=== PATIENT | male | born 1985 | race Caucasian/White ===

== ENCOUNTER 2018-02-12 01:22 | Emergency (ER) | payer OTHER, MEDICAID, SELFPAY ==
[2018-02-12 01:30] VITALS: BP 153/97; PULSE 97; RESP 16; TEMP 36.5; O2SAT 99; BMI 21.9
--- NOTE | 2018-02-12 01:39 | ED.PSYCH ---
HPI - Psych General Chief Complaint: Psychiatric Symptoms Stated Complaint: WANTS MENTAL HEALTH POSS DETOX Time Seen by Provider: 02/12/18 01:36 Source: patient and RN notes reviewed Mode of arrival: ambulatory Limitations: no limitations History of Present Illness HPI Narrative: Patient is a 32-year-old male who presents wanting detox. He admits to using multiple drugs including methamphetamine Suboxone and opiates. He does is last use was about 5 days ago. He says he has been having hallucinations and people following him for at least the last 2 years. However over the last couple of days feels like he may hurt 1 of them and he feels like he may rash had a plain clothes police officer unintentionally, because finger little out of control now. He has no intent on hurting anyone or for himself but he does feel like he needs detox. He has been in detox before History of same: Yes Relieving factors: none Exacerbating factors: none Review of Systems Review of Systems All systems reviewed & are unremarkable except as noted in HPI and below Constitutional Reports system reviewed and no additional complaints, except as docu and Denies headache(s) ENT Ears, Nose, Mouth, and Throat: Denies headache(s) Cardiovascular Denies dyspnea and Denies dyspnea on exertion Respiratory Denies cough, Denies dyspnea, Denies dyspnea on exertion and Denies wheezing Gastrointestinal Gastrointestinal: Denies abdominal pain, Denies change in bowel habits, Denies diarrhea, Denies nausea and Denies vomiting Musculoskeletal Denies back pain, Denies muscle weakness, Denies numbness and Denies tingling Neurologic Denies headache(s), Denies lack of coordination, Denies numbness and Denies tingling Psychiatric Reports as per HPI Allergic/Immunologic Denies wheezing [facility] Medical History Anxiety (Acute) Exam Const General: anxious and No intoxicated appearing Nutritional Appearance: average body habitus Eyes Pupils: PERRL EOM: EOM intact bilaterally Resp Effort & Inspection: normal respiratory effort, able to speak in complete sentences and uses accessory muscles Auscultation: no rales, no rhonchi and no wheezes Cardio Pulses: normal peripheral pulses GI Inspection: non-distended Palpation: soft, no hepatosplenomegaly, No guarding, No pulsatile mass and No tender Auscultation: normal bowel sounds Neuro General: alert, oriented x3, gait normal and no focal motor deficits Cranial Nerves: CN's II-XI intact bilaterally Sensory Exam: no sensory deficits noted Psych Appearance: grossly normal Speech and Movement: agitated and pressured speech Mood: anxious mood Affect: normal affect Attitude: cooperative Thought Content: hallucinations visual MDM - Psych Lab Data Attestation: I reviewed the patient's lab results. Result diagrams: 02/12/18 02:15 02/12/18 02:15 Lab Results 02/12/18 02/12/18 02/12/18 Range/Units 01:40 01:40 02:15 WBC 14.0 H (4.5-11.0) X10^3/uL RBC 4.30 L (4.5-5.9) X10^6/uL Hgb 13.5 (13.5-17.5) g/dL Hct 39.2 L (41-53) % MCV 91.1 (80-100) fL MCH 31.3 (26-34) PG MCHC 34.4 (30-36) % RDW 12.8 (11.6-14.8) % Plt Count 470 H (150-400) X10^3/uL Neut % (Auto) 64.6 (50-75) % Lymph % (Auto) 26.0 (25-40) % [place] % (Auto) 6.4 (3-14) % Eos % (Auto) 2.2 (2-4) % Baso % (Auto) 0.8 (0-2) % Neut # (Auto) 9000 H (7648-0896) /uL Sodium (137-145) mmol/L Potassium (3.4-5.1) mmol/L Chloride (98-107) mmol/L Carbon Dioxide (22-32) mmol/L BUN (9-20) mg/dL Creatinine (0.66-1.25) mg/dL Estimated GFR (>60) mL/min BUN/Creatinine Ratio (6-22) Glucose (70-100) mg/dL Calcium (8.4-10.2) mg/dL Total Bilirubin (0.2-1.3) mg/dL AST (17-59) IU/L ALT (21-72) IU/L Alkaline Phosphatase (38-126) U/L Total Protein (6.3-8.2) g/dL Albumin (3.5-5.0) g/dL Globulin (1.7-4.1) g/dL Albumin/Globulin Ratio (1.0-2.8) Urine Color Yellow Urine Appearance Clear Urine pH 5.0 (4.5-8.0) Ur Specific [place] >=1.030 H (1.000-1.035) Urine Protein Trace (NEGATIVE) Urine Glucose (UA) Normal (NEGATIVE) g/dL Urine Ketones Negative (NEGATIVE) Urine Occult Blood Negative (NEGATIVE) Urine Nitrate Negative (NEGATIVE) Urine Bilirubin Negative (NEGATIVE) Urine Urobilinogen 0.2 (0.2) E.U./dL Ur Leukocyte Esterase Negative (NEGATIVE) Urine WBC 0-1/hpf (0-5/HPF) Hyaline Casts Occasional H (None) Urine Mucus 1+ H (Negative) Ur Culture Indicated? Cult not indicated Micro UA Comment Not Reportable Urine Opiates Screen Negative (Negative) Ur Oxycodone Screen Positive H (Negative) Urine Methadone Screen Negative (Negative) Ur Barbiturates Screen Negative (Negative) U Tricyclic Antidepress Positive H (Negative) Ur Phencyclidine Scrn Negative (Negative) Ur Amphetamines Screen Positive H (Negative) U Methamphetamines Scrn Positive H (Negative) Ur MDMA Scrn (Ecstasy) Negative (Negative) U Benzodiazepines Scrn Positive H (Negative) Urine Cocaine Screen Negative (Negative) U Marijuana (THC) Screen Positive H (Negative) Ethyl Alcohol mg/dL HIV 1&2 Antibody (NEGATIVE) 02/12/18 02/12/18 Range/Units 02:15 02:15 WBC (4.5-11.0) X10^3/uL RBC (4.5-5.9) X10^6/uL Hgb (13.5-17.5) g/dL Hct (41-53) % MCV (80-100) fL MCH (26-34) PG MCHC (30-36) % RDW (11.6-14.8) % Plt Count (150-400) X10^3/uL Neut % (Auto) (50-75) % Lymph % (Auto) (25-40) % [place] % (Auto) (3-14) % Eos % (Auto) (2-4) % Baso % (Auto) (0-2) % Neut # (Auto) (9438-9483) /uL Sodium 137 (137-145) mmol/L Potassium 3.4 (3.4-5.1) mmol/L Chloride 93.0 L (98-107) mmol/L Carbon Dioxide 30.0 (22-32) mmol/L BUN 16.0 (9-20) mg/dL Creatinine 0.80 (0.66-1.25) mg/dL Estimated GFR > 60.0 (>60) mL/min BUN/Creatinine Ratio 20.0 (6-22) Glucose 161 H (70-100) mg/dL Calcium 9.3 (8.4-10.2) mg/dL Total Bilirubin 0.4 (0.2-1.3) mg/dL AST 18 (17-59) IU/L ALT 21 (21-72) IU/L Alkaline Phosphatase 110 (38-126) U/L Total Protein 7.6 (6.3-8.2) g/dL Albumin 4.4 (3.5-5.0) g/dL Globulin 3.2 (1.7-4.1) g/dL Albumin/Globulin Ratio 1.4 (1.0-2.8) Urine Color Urine Appearance Urine pH (4.5-8.0) Ur Specific [place] (1.000-1.035) Urine Protein (NEGATIVE) Urine Glucose (UA) (NEGATIVE) g/dL Urine Ketones (NEGATIVE) Urine Occult Blood (NEGATIVE) Urine Nitrate (NEGATIVE) Urine Bilirubin (NEGATIVE) Urine Urobilinogen (0.2) E.U./dL Ur Leukocyte Esterase (NEGATIVE) Urine WBC (0-5/HPF) Hyaline Casts (None) Urine Mucus (Negative) Ur Culture Indicated? Micro UA Comment Urine Opiates Screen (Negative) Ur Oxycodone Screen (Negative) Urine Methadone Screen (Negative) Ur Barbiturates Screen (Negative) U Tricyclic Antidepress (Negative) Ur Phencyclidine Scrn (Negative) Ur Amphetamines Screen (Negative) U Methamphetamines Scrn (Negative) Ur MDMA Scrn (Ecstasy) (Negative) U Benzodiazepines Scrn (Negative) Urine Cocaine Screen (Negative) U Marijuana (THC) Screen (Negative) Ethyl Alcohol < 10 mg/dL HIV 1&2 Antibody Negative (NEGATIVE) Course Orders Ordered: Discontinued Medications Al Hydrox/Mg Hydrox/Simethicone 20 ml/ Lidocaine HCl 15 ml 0 ml PO NOW ONE Stop: 02/12/18 03:15 Last Admin: 02/12/18 03:18 Dose: 20 ml Haloperidol (Haldol) 5 mg PO NOW ONE Stop: 02/12/18 01:52 Last Admin: 02/12/18 02:05 Dose: 5 mg Reevaluation(s) Reevaluation #1: Patient is requesting an HIV test. He understands that he will not have counseling before more medially after the test. He says he just wants to know yes or no. Consent for HIV testing is signed in the chart. HIV negative Reevaluation #2: Patient woke up around 7:00 a.m. stating that he no longer feels like he may hurt someone. The paranoia and hallucinations have improved. He feels ready to go. He is told he is HIV negative at this time. Time: 07:00 Last Vital Signs Temp 97.7 F 02/12/18 01:30 Pulse 90 02/12/18 07:12 Resp 14 02/12/18 07:12 BP 129/89 H 02/12/18 07:12 Pulse Ox 99 02/12/18 07:12 Discharge Plan Departure Patient Disposition: Home, Self-Care Clinical Impression: Acute psychosis Discharge Date/Time: 02/12/18 07:31 Interventions: ED Discharge Assessment Last Done: 02/12/18 07:30 Instructions: DI for Psychosis Activity Restrictions/Additional Instructions: *You have been diagnosed with acute psychosis with polysubstance abuse *What to do: Recommend outpatient rehab *Take medications as directed *Follow up with your primary care provider in 2-3 days *Return to ER if you should have any new, worsening or concerning symptoms Referrals: Karli Mueller PA-C [[facility]] -
[2018-02-12] MEDS: HALOPERIDOL 5 MG TABLET PO (02:05)
--- NOTE | 2018-02-12 02:15 | PC.NURSE ---
pt requested hiv test, provider notified
[2018-02-12 02:20] LABS: Urine Amphetamines Positive (Negative); Urine Barbiturates Negative (Negative); Urine Benzodiazepines Positive (Negative); Urine Cocaine Negative (Negative); Urine MDMA Negative (Negative); Urine Methadone Negative (Negative); Urine Methamphetamines Positive (Negative); Urine Morphine/Opi cutoff 2000 Negative (Negative); Urine Oxycodone Positive (Negative); Urine Phencyclidine Negative (Negative); Urine Tetrahydrocannabinol Positive (Negative); Urine Tricyclic Antidepressant Positive (Negative)
[2018-02-12 02:28] LABS: Add Manual Diff / Slide Review NO; Basophils Percent Auto 0.8 % (0-2); Eosinophils Percent Auto 2.2 % (2-4); Hematocrit 39.2 % (41-53); Hemoglobin 13.5 g/dL (13.5-17.5); Mean Corpuscular HGB Conc 34.4 % (30-36); Mean Corpuscular Hemoglobin 31.3 PG (26-34); Mean Corpuscular Volume 91.1 fL (80-100); Monocytes Percent Auto 6.4 % (3-14); Neutrophils Absolute Auto 9000 /uL (3000-5900); Neutrophils Percent Auto 64.6 % (50-75); Platelet Count 470 X10^3/uL (150-400); Red Cell Distribution Width 12.8 % (11.6-14.8)
[2018-02-12 02:34] LABS: Appearance Urine UA CLEAR; Color Urine UA Yellow
[2018-02-12 02:35] LABS: Bilirubin Urine UA Negative (NEGATIVE); Glucose Urine UA Normal (NEGATIVE); Ketones Urine UA NEGATIVE (NEGATIVE); Leukocyte Esterase Urine UA NEGATIVE (NEGATIVE); Nitrite Urine UA NEGATIVE (NEGATIVE); Occult Blood Urine UA Negative (NEGATIVE); Protein Urine UA TRACE (NEGATIVE); Specific Gravity Urine UA >=1.030 (1.000-1.035); Urobilinogen Urine UA 0.2 E.U./dL (0.2); WBC Urine 0-1/HPF (0-5/HPF)
[2018-02-12 02:35] LABS: Alanine Aminotransferase 21 IU/L (21-72); Albumin 4.4 g/dL (3.5-5.0); Albumin Globulin Ratio 1.4 (1.0-2.8); Alkaline Phosphatase 110 U/L (38-126); Aspartate Aminotransferase 18 IU/L (17-59); Bilirubin Total 0.4 mg/dL (0.2-1.3); Calcium 9.3 mg/dL (8.4-10.2); Estimated Glomerular Filt Rate > 60.0 mL/min (>60); Ethanol (ETOH) < 10 mg/dL; Globulin 3.2 g/dL (1.7-4.1); Glucose 161 mg/dL (70-100); HEMOLYSIS < 15 (0-50); Potassium 3.4 mmol/L (3.4-5.1); Sodium 137 mmol/L (137-145); Total Protein 7.6 g/dL (6.3-8.2)
[2018-02-12 02:36] LABS: Hyaline Casts Urine Occasional; Mucus Urine 1+ (Negative)
[2018-02-12 02:42] LABS: Culture Indicated Urine Cult Not Indicated
[2018-02-12] MEDS: MAG HYDROX/ALUMINUM/SIMETH SUS 20 ML, LIDOCAINE VISCOUS 2% 15 ML PO (03:18)
[2018-02-12 03:46] LABS: HIV 1 and 2 Antibody NEGATIVE (NEGATIVE)
[2018-02-12 04:45] VITALS: BP 135/92; PULSE 78; RESP 9; O2SAT 99
[2018-02-12 07:12] VITALS: BP 129/89; PULSE 90; RESP 14; O2SAT 99
== END 2018-02-12 07:31 | disposition home or self-care (01) ==
PROVIDERS: Emergency Provider Emergency Medicine
DX: F23 Brief psychotic disorder (principal)
CPT/HCPCS: 80053; 80305; 80320; 81001; 85025; 86703; 99283